=== PATIENT | female | born 1995 | race Native Hawaiian/Other Pacific Islander ===

== ENCOUNTER 2017-08-23 15:15 | Emergency (ER) | payer MEDICAID, OTHER ==
[~2017-08-23] VITALS: Ht 160 cm; Wt 85.0 kg
[~2017-08-23 15:15] MED LIST: IBUP-232 PO; Z.0.BCPILL PO
[2017-08-23 15:18] VITALS: BP 135/88; PULSE 82; RESP 16; TEMP 98.2; O2SAT 98
[2017-08-23 15:53] LABS: BLOOD, URINE LARGE (NEG); GLUCOSE,URINE NEG (NEG); KETONE, URINE NEG (NEG); NITRITE,URINE NEG (NEG); PH, URINE 5.5 (5.0-8.5); URINE COLOR YELLOW (YELLW/STRAW); URINE LEUKOCYTE ESTERASE MOD (NEG)
[2017-08-23 15:58] LABS: BILIRUBIN, URINE NEG (NEG)
[2017-08-23 16:07] LABS: BACTERIA, URINE FEW /hpf; RBC, URINE INNUM /hpf (0-3); SQUAMOUS EPITHELIAL CELL URINE > 8 /hpf (0-5); WBC, URINE 100-200 /hpf (0-5)
[2017-08-23] MEDS ORDERED: PHEN0.4T PO (16:41)
[2017-08-23] MEDS ORDERED: MACR100C2 PO (16:41)
--- NOTE | 2017-08-23 16:41 | PD ---
HPI Chief Complaint: Complaint Time Seen by Provider: 16:02 Travel History International Travel<30 days: No Contact w/Intl Traveler<30days: No Traveled to known affect area: No History of Present Illness HPI This is a 21-year-old female here with dysuria, urgency, frequency 2 days. Reports the symptoms are similar to her prior UTIs. No fever chills. No flank pain. No nausea or vomiting. Symptom severity is mild to moderate. No aggravating or alleviating factors. PFSH Past Medical History Diminished Hearing: No Neurologic: Yes (VIRAL MENINGITIS 2003) Immunizations Current: Yes Influenza Vaccination: No ?: Not LMP: ONE WEEK Past Surgical History Surgical History: No Previous Surgery Social History Alcohol Use: Yes (occas) Tobacco Use: No Substance Use: Yes (marijuana: last week) Allergies-Medications (Allergen,Severity, Reaction): Coded Allergies: amoxicillin (Unverified Allergy, Severe, 08/23/17) PT NOT SURE, WAS TOLD NOT TO TAKE Reported Meds & Prescriptions Reported Meds & Active Scripts Active Review of Systems Except as stated in HPI: all other systems reviewed are Neg General / Constitutional: No: Fever Gastrointestinal: No: Abdominal Pain Genitourinary: No: Dysuria Physical Exam Narrative GENERAL: Alert and well-appearing 21-year-old female SKIN: Warm and dry. HEAD: Normocephalic. EYES: No scleral icterus. No injection or drainage. NECK: Supple, trachea midline. No JVD or lymphadenopathy. CARDIOVASCULAR: Regular rate and rhythm without murmurs, gallops, or rubs. RESPIRATORY: Breath sounds equal bilaterally. No accessory muscle use. GASTROINTESTINAL: Abdomen soft, non-tender, nondistended. MUSCULOSKELETAL: No cyanosis, or edema. BACK: Nontender without obvious deformity. No CVA tenderness. Data Data Last Documented VS Vital Signs Date Time Temp Pulse Resp B/P (MAP) Pulse Ox O2 Delivery O2 Flow Rate FiO2 08/23/17 15:18 98.2 82 16 135/88 (104) 98 Orders Orders Ed Urine Pregnancytest Poc (08/23/17 15:23) Urinalysis - C+S If Indicated (08/23/17 15:23) Urine Culture (08/23/17 15:00) Labs Laboratory Tests Test 08/23/17 15:00 Urine Collection Type CLEAN CATCH Urine Color YELLOW Urine Turbidity CLOUDY Urine pH 5.5 Urine Specific [place] GREATER/EQUAL 1.030 Urine Protein 300 OR GREATER mg/dL Urine Glucose (UA) NEG mg/dL Urine Ketones NEG mg/dL Urine Occult Blood LARGE Urine Nitrite NEG Urine Bilirubin NEG Urine Urobilinogen 0.2 MG/DL Urine Leukocyte Esterase MOD Urine RBC INNUM /hpf Urine WBC 100-200 /hpf Urine Squamous Epithelial Cells > 8 /hpf Urine Bacteria FEW /hpf Microscopic Urinalysis Comment CULTURE INDICATED Urine Collection Time 15:00 [facility] Medical Decision Making Medical Screen Exam Complete: Yes Emergency Medical Condition: Yes Differential Diagnosis UTI, pyelonephritis, vaginitis Narrative Course 21-year-old female here with UTI-like symptoms 2 days. She is nontoxic appearing. No CVA tenderness. UA is suggestive of infection. She will be treated with Macrobid Diagnosis Primary Impression: UTI (urinary tract infection) Qualified Codes: N30.01 - Acute cystitis with hematuria Referrals: Primary Care Physician Additional Instructions: Antibiotics as directed. Follow-up with your primary doctor. Return if you have new or worsening symptoms Scripts Phenazopyridine (Pyridium) 100 Mg Tab 100 MG PO Q8H Y for DYSURIA for 2 Days, #6 TAB 0 Refills Prov: Naomi Angel 08/23/17 Nitrofurantoin Monohydrate Macrocrystals (Macrobid) 100 Mg Capsule 100 MG PO BID for Infection for 5 Days, #10 CAP 0 Refills Prov: Naomi Angel 08/23/17 Disposition: 01 DISCHARGE HOME Condition: Stable Naomi Angel August 23, 2017 16:41
== END 2017-08-23 16:54 | disposition home or self-care (01) ==
LOC: PHED 15:15 → PHEFT 16:54
DX: N30.01 Acute cystitis with hematuria (principal)
CPT/HCPCS: 81001; 84703; 87086; 99283